=== PATIENT | female | born 1950 | race Caucasian/White ===

== ENCOUNTER 2016-12-04 12:07 | Emergency (ER) | payer OTHER ==
[2016-12-04 12:46] VITALS: BP 126/85
--- NOTE | 2016-12-04 13:07 | UC ---
GI Bleed HPI - HPI Summary HPI Summary: Patient has had 4 days of diarrhea, denies any episodes today, was worried when whe saw bloody mucus and had some bright red blood when wiping yesterday. has not happened today. - History Of Current Complaint Chief Complaint: UCGI Stated Complaint: WEAK DIARRHEA W/ BLOOD Time Seen by Provider: 12/04/16 12:41 Hx Obtained From: Patient ?: No Onset/Duration: Sudden Onset Timing: Intermittent Episodes Lasting: Severity: Bright Red Blood per Rectum - with mucus Severity Initially: Mild Severity Currently: Mild Associated Pain: None Aggravating Factor(s): Bowel Movement - Allergies/Home medications Allergies/Adverse Reactions: Allergies Allergy/AdvReac Type Severity Reaction Status Date / Time No Known Allergies Allergy Verified 12/04/16 12:46 Home Medications: Home Medications Atorvastatin* [Lipitor*] 10 mg PO 1700 12/04/16 [History Confirmed 12/04/16] DULoxetine DR CAP* [Cymbalta CAP*] 20 mg PO DAILY 12/04/16 [History Confirmed ] Lisinopril [Lisinopril 2.5 MG-] 2.5 mg PO DAILY 12/04/16 [History Confirmed 03/15] Omeprazole CAP* [Prilosec CAP* 20 MG] 40 mg PO BID 12/04/16 [History Confirmed 12/04/16] PMH/Surg Hx/FS Hx/Imm Hx Previously Healthy: Yes Cardiovascular History Of: Reports: Hypertension GI/ History Of: Reports: Ulcer - Surgical History Surgical History: Yes Surgery Procedure, Year, and Place: tubal, hysterecotomy - Family History Known Family History: Positive: Hypertension - Social History Alcohol Use: Rare Substance Use Type: None Smoking Status (MU): Current Some Day Smoker Type: Cigarettes Review of Systems Constitutional: Negative Skin: Negative Eyes: Negative ENT: Negative Respiratory: Negative Cardiovascular: Negative Gastrointestinal: Abdominal Pain, Diarrhea Genitourinary: Negative Motor: Negative Neurovascular: Negative Musculoskeletal: Negative Neurological: Negative Psychological: Negative All Other Systems Reviewed And Are Negative: Yes Physical Exam Triage Information Reviewed: Yes Appearance: Well-Nourished, Ill-Appearing, Pain Distress Vital Signs: Initial Vital Signs Temp 98.3 F 12/04/16 12:36 Pulse 92 12/04/16 12:36 Resp 18 12/04/16 12:36 BP 126/85 12/04/16 12:36 Pulse Ox 100 12/04/16 12:36 Vital Signs Reviewed: Yes Eye Exam: Normal Eyes: Positive: Conjunctiva Clear ENT: Positive: Hearing grossly normal, Pharynx normal, TMs normal Dental Exam: Normal Neck exam: Normal Neck: Positive: Supple, Nontender, No Lymphadenopathy Respiratory Exam: Normal Respiratory: Positive: Chest non-tender, Lungs clear, Normal breath sounds Cardiovascular Exam: Normal Cardiovascular: Positive: RRR, No Murmur, Pulses Normal Abdomen Description: Positive: Nontender, No Organomegaly, Soft, CVA Tenderness (R) - nrg, CVA Tenderness (L) - nrg, Other: - REctal exam: no visible blood, or external hemhorroids. no palpable stool or tenderness, hemocult obtained Bowel Sounds: Positive: Present Musculoskeletal Exam: Normal Musculoskeletal: Positive: Strength Intact, ROM Intact, No Edema Neurological Exam: Normal Neurological: Positive: Alert, Muscle Tone Normal Psychological Exam: Normal Skin Exam: Normal Bleed Course/Dx - Course Course Of Treatment: hx obtained, exam performed, meds reviewed, hemoccult obtained, - Differential Dx/Diagnosis Differential Diagnosis/HQI/PQRI: Crohn's Disease, Diverticulitis, Gastritis, Hemorrhoids, Ulcerative Colitis Provider Diagnoses: diarrhea. abdominal cramping Discharge - Discharge Plan Condition: Stable Disposition: HOME Patient Education Materials: Rectal Bleeding (ED) Additional Instructions: Your test for rectal blood was negative. If it persists, please follow up with Dr Mccartney. meanwhile, Increase your fluid intake to rehydrate after your diarrhea episodes. keep your diet bland and increase variety as tolerated.
== END 2016-12-04 13:17 | disposition home or self-care (01) ==
LOC: UCCORT 12:07
DX: R19.7 Diarrhea, unspecified (principal); R10.9 Unspecified abdominal pain; I10 Essential (primary) hypertension; Z90.710 Acquired absence of both cervix and uterus; Z72.0 Tobacco use
CPT/HCPCS: 82270; 99212; G0463